=== PATIENT | male | born 1990 | race Asian ===

== ENCOUNTER 2020-11-29 22:39 | Inpatient (IN) | payer OTHER ==
[~2020-11-29] VITALS: Ht 170.2 cm; Wt 70.5 kg
[2020-11-30] MEDS ORDERED: vancomycin/NS 1 GM ADD-VANTAGE 250 ML IV ONE (01:10)
[2020-11-30] MEDS ORDERED: CefTRIAXone 2gm/D5W 50ml BAG 50 ML IV ONE (01:10)
[2020-11-30] MEDS ORDERED: predniSONE 20 mg tablet PO ONE (01:10)
[2020-11-30 02:29] LABS: BASOPHILS % (AUTO) 0.2 % (0-1); EOSINOPHILS # (AUTO) 0.1 X10'3 (0-0.9); EOSINOPHILS % (AUTO) 0.6 % (0-6); HEMATOCRIT 35.9 % (42.0-52.0); HEMOGLOBIN 11.9 g/dl (14.0-17.9); LYMPHOCYTES # (AUTO) 1.1 X10'3 (1.1-4.8); LYMPHOCYTES % (AUTO) 8.4 % (21-51); MEAN CORPUSCULAR HGB CONC 33.2 g/dL (33.0-36.5); MEAN CORPUSCULAR VOLUME 93.4 FL (78-98); MONOCYTES # (AUTO) 0.8 X10'3 (0-0.9); MONOCYTES % (AUTO) 6.3 % (2-12); NEUTROPHILS # (AUTO) 10.9 X10'3 (1.8-7.7); NEUTROPHILS % (AUTO) 84.5 % (42-75); PLATELET COUNT 250 X10'3 (140-440); RED BLOOD COUNT 3.84 X10'6 (4.70-6.10); RED CELL DISTRIBUTION WIDTH 12.9 % (11.5-14.5)
[2020-11-30 02:35] LABS: ALANINE AMINOTRANSFERASE 40 U/L (12-78); ALBUMIN 3.7 G/DL (3.4-5.0); ALKALINE PHOSPHATASE 70 IU/L (46-116); ANION GAP 9 (8-16); ASPARTATE AMINO TRANSFERASE 39 U/L (10-37); BILIRUBIN,TOTAL 0.7 MG/DL (0.1-1.0); BLOOD UREA NITROGEN 13 MG/DL (7-18); CALCIUM 8.4 MG/DL (8.5-10.1); CHLORIDE 101 MMOL/L (99-107); CREATININE 0.93 MG/DL (0.60-1.10); GLUCOSE 95 MG/DL (70-104); MAGNESIUM 2.2 MG/DL (1.5-2.4); POTASSIUM 3.7 MMOL/L (3.5-5.1); SODIUM 136 MMOL/L (135-145); TOTAL CARBON DIOXIDE 25.8 MMOL/L (24-32); TOTAL PROTEIN 7.4 G/DL (6.4-8.2); eGFR > 90 ML/MIN
[2020-11-30] MEDS ORDERED: normal saline 1000ML IV soln IV ONE (03:20)
[2020-11-30] MEDS ORDERED: morphine 2 MG/ML inj. syringe IV PRN ×2 (03:40)
[2020-11-30] MEDS ORDERED: ondansetron/PF 4mg/2ml inj IV PRN (03:40)
[2020-11-30] MEDS ORDERED: magnesium hydroxide 30ml (MOM) UD suspension PO PRN (03:40)
[2020-11-30] MEDS ORDERED: HYDROcodone/acetaminophen 10/325mg tab PO PRN (03:40)
[2020-11-30] MEDS ORDERED: acetaminophen 325mg tablet PO PRN ×2 (03:40)
[2020-11-30] MEDS ORDERED: mag hydrox/Alum hydrox/simeth 30ml oral suspension PO PRN (03:40)
[2020-11-30] MEDS ORDERED: HYDROcodone/acetaminophen 5mg/325mg tablet PO PRN (03:40)
[2020-11-30] MEDS: normal saline 1000ml 1,000 ML IV SCH ×2 (03:56→10:07)
--- NOTE | 2020-11-30 05:40 | NUR ---
PATIENT SLEEPING UNDISTURBED FOR THE LAST 3 HOURS.
[2020-11-30] MEDS ORDERED: NICOTINE POLACRILEX 2 MG LOZENGE BC PRN (07:00)
--- NOTE | 2020-11-30 07:34 | NUR ---
Patient in room ED 7. I have received report from Aries VORA and had the opportunity to ask questions and assume patient care.
[2020-11-30] MEDS ORDERED: vancomycin/NS 1 GM ADD-VANTAGE 250 ML IV SCH ×2 (08:00→18:00)
--- NOTE | 2020-11-30 08:44 | NUR ---
PAGER ID: [phone] MESSAGE: Mayur [id number], Alvaro MontañoA, does patient need to be on NPO status for cellulitis?
[2020-11-30] MEDS ORDERED: CefTRIAXone/D5W-Rocephin 1gm 50 ML IV ONE (09:00)
--- NOTE | 2020-11-30 09:53 | NUR ---
PAGER ID: [phone] MESSAGE: Mayur [id number] Alvaro [id number], unfortunately pt got breakfast tray, diet input incorrectly, NPO now.
[2020-11-30] MEDS ORDERED: NO HOME MEDS (10:47)
[2020-11-30] MEDS ORDERED: iohexol 300mg/ml 100ml inj. ONE (11:05)
[2020-11-30] MEDS ORDERED: tetanus & diphtheria toxoid (Td) vaccine 0.5ml IMVAC ONE (11:30)
[2020-11-30] MEDS ORDERED: TETanus/Pertussis (Acell)/Diphther VAC/PF (Tdap-Adult) 0.5ml syringe IMVAC ONE (11:45)
[2020-11-30 12:00] VITALS: BP 108/70
--- NOTE | 2020-11-30 12:07 | NUR ---
pt off floor to CT
[2020-11-30 12:34] LABS: URINE AMPHETAMINE SCREEN POSITIVE (Neg); URINE BARBITUATE SCREEN NEGATIVE (Neg); URINE BENZODIAZEPINES SCREEN NEGATIVE (Neg); URINE CANNABINOID SCREEN POSITIVE (Neg); URINE COCAINE SCREEN NEGATIVE (Neg); URINE METHADONE SCREEN NEGATIVE (Neg); URINE OPIATE SCREEN NEGATIVE (Neg); URINE PHENCYCLIDINE SCREEN NEGATIVE (Neg)
--- NOTE | 2020-11-30 16:55 | NUR ---
PAGER ID: [phone] MESSAGE: Ilir Malik wants to leave AMA. Do you want to talk to him? Shikha [phone]
--- NOTE | 2020-11-30 17:29 | NUR ---
Patient leaving AMA, IV discontinued, pt warned of risks, all education completed, AMA paperwork signed by pt.
[2020-12-01] MEDS ORDERED: VANCOMYCIN LEVEL IV ONE (01:30)
[2020-12-01] MEDS ORDERED: CefTRIAXone/D5W-Rocephin 1gm 50 ML IV SCH (08:00)
== END 2020-11-30 17:33 | disposition left against medical advice (07) | DRG 603 ==
LOC: ER 22:39 → ED HOLD 11-30 03:39 → SUR 3N 11-30 07:40
PROVIDERS: ADMIT Internal Medicine; ATTEND Family Medicine
PROC: BQ2R1ZZ Computerized Tomography (CT Scan) of Right Lower Extremity using Low Osmolar Contrast (ICD-10-PCS; principal; 2020-11-30)
DX: L03.115 Cellulitis of right lower limb (principal); L02.611 Cutaneous abscess of right foot; F12.90 Cannabis use, unspecified, uncomplicated; F15.10 Other stimulant abuse, uncomplicated; F17.210 Nicotine dependence, cigarettes, uncomplicated; Z53.29 Procedure and treatment not carried out because of patient's decision for other reasons; Z28.21 Immunization not carried out because of patient refusal
CPT/HCPCS: 36415; 73600; 73630; 73701; 80053; 80305; 83605; 83735; 84145; 85025; 87040; 87081; 90715; 96365; 99285; G0378; J0696; J3370; J7030; J7512; Q9967